=== PATIENT | female | born 1995 | race Caucasian/White ===

== ENCOUNTER 2020-06-04 14:53 | Emergency (ER) | payer BC, SELFPAY ==
--- NOTE | 2020-06-04 14:56 | ED.GENADULT ---
HPI - General Adult General Chief complaint: Ear Stated complaint: sore throat Time Seen by Provider: 06/04/20 14:56 Source: patient Mode of arrival: ambulatory Limitations: no limitations History of Present Illness HPI narrative: 25-year-old female patient presents to the [facility] with complaints of sore throat for the past 4 days. Denies any fevers, body aches or chills. Denies any ear pain. Patient states she has had some sneezing as well as nasal congestion. Patient states she is also has a little bit of some sinus drainage and postnasal drip. Patient denies any coughing, chest pain or shortness of breath. Denies any abdominal pain, nausea, vomiting or diarrhea. Patient states she is just been taking some [id number] Tylenol as well as doing some hot tea to help with her symptoms denies taking any antihistamines. Patient states she does have history of seasonal allergies. Related Data Allergies Allergy/AdvReac Type Severity Reaction Status Date / Time No Known Allergies Allergy Verified 06/04/20 15:02 Review of Systems Review of Systems: Narrative: CONSTITUTIONAL: Denies fever, chills, or sweats. EYES: Denies visual changes, redness, or discharge. ENT: Denies rhinorrhea, positive congestion, positive sore throat, denies otalgia. Positive sneezing CARDIOVASCULAR: Denies chest pain, palpitations, or edema. RESPIRATORY: Denies cough or dyspnea. GASTROINTESTINAL: Denies abdominal pain, nausea, vomiting, or diarrhea. GENITOURINARY: Denies dysuria or hematuria. SKIN: Denies rash or itching. MUSCULOSKELETAL: Denies back pain, joint pain, or myalgia. NEUROLOGIC: Denies headache, numbness, or weakness. PSYCHIATRIC: Denies anxiety or depression. [facility] Past Medical History Medical History (Updated 06/04/20 @ 15:20 by EDUARD Wilkerson) Anxiety Asthma Back pain Depression Endometriosis Fractures Right wrist Hypertension With Kidney stones Urinary tract infection Surgical History Surgical History (Updated 06/04/20 @ 14:58 by EDUARD Wilkerson) S/P laparoscopic surgery Remove cyst from around ovaries Comments At the time of my signature I agree with nursing past medical history, surgical, social, and family history. There is no relevant family history pertinent to the presenting complaint. Exam Narrative: Exam Narrative: GENERAL: Well-appearing, well-nourished, and in no acute distress. HEAD: Normocephalic, atraumatic. EYES: PERRLA and EOMI. ENT: Nares with erythema and edema noted bilaterally, patent, no rhinorrhea or epistaxis. Mucous membranes moist. Posterior pharynx with some postnasal drip, 2+ tonsil enlargement and some erythema. No exudates or lesions present. Bilateral TMs are clear no erythema or foreign bodies in the canal. NECK: Supple. No lymphadenopathy CHEST: Clear to auscultation. No respiratory distress. Patient able talk in clear complete sentences. No tripoding noted. HEART: Regular rate and rhythm. No murmur heard. Normal peripheral pulses. ABDOMEN: Soft, nontender, nondistended, normal active bowel sounds. EXTREMITIES: Normal range of motion. No edema. SKIN: Warm, dry, no rash. NEURO: No focal deficits. Alert and oriented x3. Course Reevaluation(s) Reevaluation #1: Reevaluated patient after strep test had resulted. Discussed with her that her strep test in the clinic today is negative however we will send this off to the lab for culture testing if it does come back positive in the next day or 2 we will call her and place her on antibiotics at that time. Discussed with patient that I will go ahead and give her an antihistamine as well as a nasal steroid due to the fact that she has a sore throat, nasal congestion and that sneezing makes me think this is more allergy related. Discussed with patient and offered to send her for COVID testing however patient has refused cover testing at this time. Patient denies any other questions or concerns at this time. Date:
[2020-06-04 15:01] VITALS: BP 142/84; PULSE 71; RESP 12; TEMP 36.4; O2SAT 99
== END 2020-06-04 15:23 | disposition home or self-care (01) ==
PROVIDERS: Emergency Provider Nurse Practitioner Family; PCP Internal Medicine
DX: J02.8 Acute pharyngitis due to other specified organisms (principal); J30.9 Allergic rhinitis, unspecified; J45.909 Unspecified asthma, uncomplicated; N80.9 Endometriosis, unspecified
CPT/HCPCS: 87081; 87147; 87880; 99203; G0463

== ENCOUNTER 2023-10-29 07:49 | Emergency (ER) | payer OTHER, BC, SELFPAY ==
[2023-10-29 07:57] VITALS: BP 155/99; PULSE 104; RESP 19; TEMP 38.1; O2SAT 99
[2023-10-29 08:00] VITALS: O2SAT 99
--- NOTE | 2023-10-29 08:05 | ED.GENADULT ---
HPI - General Adult General Chief complaint: Upper Respiratory Infection Stated complaint: UPPER RESP SYMPTOMS Time Seen by Provider: 10/29/23 07:53 History of Present Illness HPI narrative: Patient is a 28-year-old female who presents ER with viral symptoms. She has been exposed to some sick children. She has been having fevers with body aches as well as sinus congestion and dry cough. No chest pain or chest pressure. Has history of asthma but denies any dyspnea. She has been taking ibuprofen cough which only helped for short amount of time. Related Data Home Medications Medication Instructions Recorded Confirmed albuterol 90 mcg/actuation aerosol mcg inhalation 10/29/23 inhaler Allergies Allergy/AdvReac Type Severity Reaction Status Date / Time No Known Allergies Allergy Verified 10/29/23 08:03 Review of Systems Constitutional: Constitutional: Reports chills, Reports fatigue and Reports fever(s) ENT: Reports nasal congestion and Reports sore throat Cardiovascular: Cardiovascular: Reports no additional cardiovascular complaints Respiratory: Respiratory: Denies chest congestion, Reports cough, Denies dyspnea and Denies wheezing Musculoskeletal: Musculoskeletal: Reports myalgias PMFSH Past Medical History Medical History (Updated 10/29/23 @ 08:54 by Bonilla Gore MD) Anxiety Asthma Back pain Depression Endometriosis Fractures Right wrist Hypertension With Kidney stones Urinary tract infection Surgical History Surgical History (Updated 10/24/23 @ 14:02 by Alexandria Slade MA) History of cholecystectomy History of tubal ligation S/P laparoscopic surgery Remove cyst from around ovaries Family History Family History (Updated 10/24/23 @ 14:03 by Alexandria Slade MA) Mother Hypertension Father Cancer of blood vessel Social History Social History (Updated 10/24/23 @ 14:03 by Alexandria Slade MA) Smoking status: Never smoker Alcohol intake: never Substance use: never Substance use type: does not use Do You Feel Safe in your Home?: Yes Lack of Transportation: No Lack of Food: Never True Current Housing: I Have Housing Concerned About Future Housing: No Difficulty Paying Gas/Electric Bills: No Difficulty Paying for Meds: No Currently Unemployed: No Education: High School Diploma/GED Difficulty w/ Childcare or Family Care: No Living arrangements: with family Occupation/Education: occupation Gender identity (if verbalized by the patient): Female Sexual Orientation (if Verbalized by the Patient): Straight or Heterosexual Exam Narrative: GENERAL: Well-appearing, well-nourished, and in no acute distress. HEAD: Normocephalic, atraumatic. CHEST: Faint and expiratory wheezing. No respiratory distress. HEART: Regular rate and rhythm. Normal peripheral pulses. EXTREMITIES: Normal range of motion. No edema. SKIN: Warm, dry, no rash. NEURO: Alert and oriented x3. PSYCH: Normal mood and affect. Course Course Emergency Course: Offered nebulizer treatment for wheezing and patient declined. Flu +. D/c with tamiflu. Vital Signs Vital signs: Vital Signs Temperature 100.6 F H 10/29/23 07:57 Pulse Rate 104 H 10/29/23 07:57 Respiratory Rate 19 10/29/23 07:57 Blood Pressure 155/99 H 10/29/23 07:57 Pulse Oximetry 99 10/29/23 07:57 Oxygen Delivery Room Air 10/29/23 07:57 Temperature 100.6 F H 10/29/23 07:57 Pulse Rate 104 H 10/29/23 07:57 Respiratory Rate 19 10/29/23 07:57 Blood Pressure 155/99 H 10/29/23 07:57 Pulse Oximetry 99 10/29/23 08:00 Oxygen Delivery Room Air 10/29/23 08:00 Medical Decision Making Vital Signs Vital Signs: Vital Signs Temperature 100.6 F H 10/29/23 07:57 Pulse Rate 104 H 10/29/23 07:57 Respiratory Rate 19 10/29/23 07:57 Blood Pressure 155/99 H 10/29/23 07:57 Pulse Oximetry 99 10/29/23 07:57 Oxygen Delivery Room Air 10/29/23 07:57
[2023-10-29 08:44] LABS: Influenza A QL RT-PCR Positive (Negative); Influenza B QL RT-PCR Negative (Negative); RSV RNA, RT-PCR Negative (Negative); SARS-CoV-2 RNA PCR Negative (Negative)
[2023-10-29 09:12] VITALS: BP 143/75; PULSE 97; RESP 14; TEMP 37.5; O2SAT 100
== END 2023-10-29 09:13 | disposition home or self-care (01) ==
PROVIDERS: Emergency Provider Emergency Medicine; PCP Internal Medicine
DX: J10.1 Influenza due to other identified influenza virus with other respiratory manifestations (principal); Z20.822 Contact with and (suspected) exposure to COVID-19; J45.909 Unspecified asthma, uncomplicated; N80.9 Endometriosis, unspecified; Z87.442 Personal history of urinary calculi; Z87.440 Personal history of urinary (tract) infections; Z90.49 Acquired absence of other specified parts of digestive tract
CPT/HCPCS: 87637; 99283